=== PATIENT | female | born 1985 | race African-American/Black ===

== ENCOUNTER 2019-09-26 20:40 | Inpatient (IN) | payer OTHER ==
[2019-09-26 17:25] VITALS: BMI 19.5
--- NOTE | 2019-09-26 21:24 | HP ---
COWS - Scale Resting Pulse: 1= [place] 81-100 Sweatin=Flushed/Facial Moisture Restless Observation: 0= Sits Still Pupil Size: 0= Normal to Room Light Bone or Joint Aches: 4=Acute Joint/Muscle Pain Runny Nose/ Eye Tearin= Runny Nose/Eyes GI Upset > 30mins: 3= Vomiting/Diarrhea (vomiting x 2, diarrhea x 1) Tremor Observation: 2= Slight Tremor Visible Yawning Observation: 0= None Anxiety or Irritability: 2=Irritable/Anxious Goose Flesh Skin: 0=Smooth Skin COWS Score: 16 CIWA Score - Admission Criteria [facility]ASAS Guidelines: Admission for Medically Managed Detox: Requires at least one of the followin. CIWA greater than 12 2. Seizures within the past 24 hours 3. Delirium tremens within the past 24 hours 4. Hallucinations within the past 24 hours 5. Acute intervention needed for co occurring medical disorder 6. Acute intervention needed for co occurring psychiatric disorder 7. Severe withdrawal that cannot be handled at a lower level of care (continued vomiting, continued diarrhea, abnormal vital signs) requiring intravenous medication and/or fluids 8. Admission [facility] Chief Complaint: Heroin withdrawal symptoms Allergies/Adverse Reactions: Allergies Allergy/AdvReac Type Severity Reaction Status Date / Time No Known Allergies Allergy Verified 09/26/19 17:19 History of Present Illness: 34 years old female with 2 years of heroin dependence is seeking admission to detox. Patient reports that she has been in detox before at [facility] and reports insignificant period of sobriety. She has history of depression and anxiety. She denies suicide attempt and suicidal ideation at this time. This is her first admission to [facility]. Exam Limitations: No Limitations - Ebola screening Have you traveled outside of the country in the last 21 days: No Have you had contact with anyone from an Ebola affected area: No Do you have a fever: No - Review of Systems Constitutional: Chills, Malaise, Night Sweats EENT: reports: Sinus Pressure Respiratory: reports: No Symptoms reported Cardiac: reports: No Symptoms Reported GI: reports: Diarrhea, Nausea, Poor Appetite, Poor Fluid Intake, Vomiting : reports: No Symptoms Reported Musculoskeletal: reports: Joint Pain, Muscle Pain Integumentary: reports: Dryness, Flushing Neuro: reports: Tremors Endocrine: reports: No Symptoms Reported Hematology: reports: No Symptoms Reported Psychiatric: reports: Mood/Affect Appropiate, Orientated x3 Other Systems: Reviewed and Negative Patient History - Patient Medical History Hx Anemia: No Hx Asthma: No Hx Chronic Obstructive Pulmonary Disease (COPD): No Hx Cancer: No Hx Cardiac Disorders: No Hx Congestive Heart Failure: No Hx Hypertension: No Hx Hypercholesterolemia: No HX Cerebrovascular Accident: No Hx Seizures: No Hx Diabetes: No Hx Gastrointestinal Disorders: No Hx Liver Disease: No Hx Genitourinary Disorders: No Hx Sexually Transmitted Disorders: No Hx Renal Disease (ESRD): No Hx Thyroid Disease: No Hx Human Immunodeficiency Virus (HIV): No (Negative 2018) Hx Hepatitis C: No Hx Depression: Yes Hx Suicide Attempt: No (Denies suicidal ideation at this time) Hx Bipolar Disorder: Yes Hx Schizophrenia: No Other Medical History: Anxiety - Patient Surgical History Past Surgical History: Yes Hx Orthopedic Surgery: Yes (Ankle surgery 2015) - PPD History Previous Implant?: Yes - Reproductive History Patient is a Female of Child Bearing Age (11 -55 yrs old): Yes Patient : No - Smoking Cessation Smoking history: Current every day smoker Have you smoked in the past 12 months: Yes Hx Chewing Tobacco Use: No Initiated information on smoking cessation: Yes 'Breaking Loose' booklet given: 09/26/19 - Substance & Tx. History Substance Use Type: Cocaine, Heroin, Opiates Hx Substance Use Treatment: Yes (KATHLEEN lewis) - Substances abused Heroin Substance route: Inhalation Frequency: Daily Amount used: 20 BAGS Age of first use: 32 Date of last use: 09/26/19 Crack Substance route: Smoking Frequency: Daily Amount used: $100 Age of first use: 33 Date of last use: 09/26/19 Non-Rx Methadone Substance route: Oral Frequency: Daily Amount used: 30 MG Age of first use: 34 Date of last use: 09/06/19 Admission Physical Exam BHS - Vital Signs Vital Signs: Vital Signs - 24 hr 09/26/19 09/26/19 09/26/19 17:18 20:50 21:02 Temperature 97.1 F L 98.0 F 98.0 F Pulse Rate 99 H 99 H 99 H Respiratory 18 18 18 Rate Blood Pressure 145/82 145/82 145/82 - Physical General Appearance: Yes: Within Normal Limits, Tremorous, Irritable, Sweating, Anxious HEENTM: Yes: Within Normal Limits Respiratory: Yes: Lungs Clear, Normal Breath Sounds, No Respiratory Distress Neck: Yes: Supple Breast: Yes: Breast Exam Deferred Cardiology: Yes: Within Normal Limits Abdominal: Yes: Normal Bowel Sounds, Soft Genitourinary: Yes: Within Normal Limits Back: Yes: Normal Inspection Musculoskeletal: Yes: Within Normal Limits Extremities: Yes: Within Normal Limits Neurological: Yes: Within Normal Limits Integumentary: Yes: Warm Lymphatic: Yes: Within Normal Limits - Diagnostic (1) Opioid dependence with withdrawal Current Visit: Yes Status: Acute (2) Depression Current Visit: Yes Status: Acute Cleared for Admission [facility] - Detox or Rehab [facility] Level of Care: Medically Managed Detox Regimen/Protocol: Methadone Claeared for Rehab Admission: No Breathalyzer - Breathalyzer Breathalyzer: 0 Urine Drug Screen - Test Device Lot number: [id number] Expiration date: 05/16/21 - Control Is test valid?: Yes - Results Drug screen NEGATIVE: No Urine drug screen results: ELLIE-Cocaine, FEN-Fentanyl, MOP-Opiates, MTD-Methadone Inpatient Rehab Admission - Rehab Decision to Admit Inpatient rehab admission?: No
[2019-09-26] MEDS ORDERED: ACETAMINOPHEN 325 MG TABLET (FP) PO PRN ×2 (21:32)
[2019-09-26] MEDS ORDERED: MAGNESIUM CITRATE 300 ML BOTTLE PO PRN (21:32)
[2019-09-26] MEDS ORDERED: BISMUTH SUBSALICYLATE 524 MG/30 ML UD PO PRN (21:32)
[2019-09-26] MEDS ORDERED: cloNIDine HCL 0.1 MG TABLET PO PRN (21:32)
[2019-09-26] MEDS ORDERED: MAGNESIUM HYDROX 2400MG/30ML ORAL SUSPENSION 30 ML CUP PO PRN (21:32)
[2019-09-26] MEDS ORDERED: MELATONIN 5 MG TABLETS PO PRN (21:32)
[2019-09-26] MEDS ORDERED: MENTHOL/PHENOL 1 EACH UD MM PRN (21:32)
[2019-09-26] MEDS ORDERED: METHADONE HCL 10 MG TABLET (FOR DETOX USE ONLY) PO ONE (21:32)
[2019-09-26] MEDS ORDERED: IBUPROFEN 400 MG TABLET (FP) PO PRN (21:32)
[2019-09-26] MEDS ORDERED: METHOCARBAMOL 500 MG TABLET PO PRN (21:32)
[2019-09-26] MEDS ORDERED: NICOTINE POLACRILEX 2 MG GUM BUC PRN (21:32)
[2019-09-26] MEDS ORDERED: MAG HYDROX/AL HYDROX/SIMETH 30 ML UNIT-DOSE CUP PO PRN (21:32)
[2019-09-26] MEDS: THIAMINE HCL 100 MG TABLET (FP) PO SCH (23:40)
[2019-09-27] MEDS ORDERED: METHADONE (DETOX) 20 MG, METHADONE (DETOX) 5 MG PO ONE (10:00)
[2019-09-27 10:02] LABS: HEMATOCRIT 30.8 % (32.4-45.2); HEMOGLOBIN 9.8 GM/dL (10.7-15.3); MCH 25.2 pg (25.7-33.7); MCHC 31.7 g/dl (32.0-36.0); MEAN CELL VOLUME 79.6 fl (80-96); MEAN PLT VOLUME 8.4 fl (7.5-11.1); PLATELET COUNT 221 K/MM3 (134-434); RBC 3.87 M/mm3 (3.60-5.2); RDW 15.6 % (11.6-15.6); WHITE BLOOD COUNT 7.7 K/mm3 (4.0-10.0)
[2019-09-27] MEDS ORDERED: METHADONE HCL 5 MG TABLET (FOR DETOX USE ONLY) ONE (10:08)
[2019-09-27] MEDS ORDERED: METHADONE HCL 10 MG TABLET (FOR DETOX USE ONLY) ONE (10:09)
[2019-09-27 10:16] LABS: ALBUMIN 2.8 g/dl (3.4-5.0); BILIRUBIN,TOTAL 0.4 mg/dL (0.2-1); BLOOD UREA NITROGEN 15.3 mg/dL (7-18); CALCIUM 7.7 mg/dL (8.5-10.1); CREATININE 0.7 mg/dL (0.55-1.3); TOT PROT 5.7 g/dl (6.4-8.2)
[2019-09-27] MEDS: NICOTINE 21 MG/24 HOURS TOPICAL PATCH TD SCH (10:17)
[2019-09-27] MEDS: PRENATAL VITAMINS W/ FOLIC ACID TABLET (FP) PO SCH (10:17)
--- NOTE | 2019-09-27 10:58 | PN ---
BHS COWS - Scale Resting Pulse: 0= RI 80 or Below Sweatin= Chills/Flushing Restless Observation: 1= Difficult to Sit Still Pupil Size: 0= Normal to Room Light Bone or Joint Aches: 2= Severe Diffuse Aches Runny Nose/ Eye Tearin= Runny Nose/Eyes GI Upset > 30mins: 0= None Tremor Observation of Outstretched Hands: 2= Slight Tremor Visible Yawning Observation: 2= >3x During Session Anxiety or Irritability: 2=Irritable/Anxious Goose Flesh Skin: 0=Smooth Skin COWS Score: 12 BHS Progress Note (SOAP) Subjective: body aches sweats shakes interrupted sleep agitation Objective: 09/27/19 11:00 Vital Signs Temperature 97.9 F 09/27/19 09:46 Pulse Rate 72 09/27/19 09:46 Respiratory Rate 16 09/27/19 09:46 Blood Pressure 91/60 09/27/19 09:46 O2 Sat by Pulse Oximetry (%) Laboratory Tests 09/27/19 09/27/19 08:00 08:00 WBC 7.7 RBC 3.87 Hgb 9.8 L Hct 30.8 L MCV 79.6 L MCH 25.2 L MCHC 31.7 L RDW 15.6 Plt Count 221 MPV 8.4 Sodium 140 Potassium 4.0 Chloride 108 H Carbon Dioxide 28 Anion Gap 3 L BUN 15.3 Creatinine 0.7 Est GFR (CKD-EPI)AfAm 132.87 Est GFR (CKD-EPI)NonAf 114.64 Random Glucose 84 Calcium 7.7 L Total Bilirubin 0.4 AST 10 L ALT 13 Alkaline Phosphatase 57 Total Protein 5.7 L Albumin 2.8 L labs noted low H:H noted; iron supplement ordered will repeat labs aaox3 lying in bed no acute distress Assessment: 09/27/19 11:01 withdrawals Plan: continue detox increase fluids iron supplement repeat labs
--- NOTE | 2019-09-27 13:54 | CONSULT ---
[facility] Psychiatric Consult - Data Date of interview: 09/27/19 Admission source: [facility] Identifying data: [employer] Linguist approached patient for psychiatric consultation. Patient stated, " Not today. I don't feel well. Maybe another day." Psychiatric consultation refused.
--- NOTE | 2019-09-27 14:46 | EKG ---
Test Reason : Blood Pressure : / mmHG Vent. Rate : 080 BPM Atrial Rate : 080 BPM P-R Int : 144 ms QRS Dur : 080 ms QT Int : 400 ms P-R-T Axes : 035 060 057 degrees QTc Int : 461 ms NORMAL SINUS RHYTHM NORMAL ECG NO PREVIOUS ECGS AVAILABLE Confirmed by ERICK ROSE, LAURENCE ([id number]) on 09/27/2019 2:45:49 PM Referred By: Emmanuel Schumacher Confirmed By:LAURENCE SUAREZ MD
[2019-09-27] MEDS: FERROUS SO4 325 MG TABLET (FP) PO SCH ×2 (14:55→17:48)
[2019-09-27] MEDS: THIAMINE HCL 100 MG TABLET (FP) PO SCH (22:26)
[2019-09-28] MEDS: FERROUS SO4 325 MG TABLET (FP) PO SCH ×3 (07:03→16:44)
[2019-09-28] MEDS ORDERED: METHADONE HCL 10 MG TABLET (FOR DETOX USE ONLY) PO ONE (10:00)
[2019-09-28] MEDS: PRENATAL VITAMINS W/ FOLIC ACID TABLET (FP) PO SCH (10:16)
[2019-09-28] MEDS: NICOTINE 21 MG/24 HOURS TOPICAL PATCH TD SCH (10:17)
[2019-09-28 12:35] LABS: BASO % 0.3 % (0-2.0); EOS % 4.3 % (0-4.5); HEMATOCRIT 33.5 % (32.4-45.2); HEMOGLOBIN 10.3 GM/dL (10.7-15.3); LYMPH % 34.3 % (8-40); MCH 24.5 pg (25.7-33.7); MCHC 30.6 g/dl (32.0-36.0); NEUT % 55.1 % (42.8-82.8); PLATELET COUNT 222 K/MM3 (134-434); RBC 4.19 M/mm3 (3.60-5.2); RDW 15.9 % (11.6-15.6); WHITE BLOOD COUNT 7.4 K/mm3 (4.0-10.0)
--- NOTE | 2019-09-28 13:35 | PN ---
BHS COWS - Scale Resting Pulse: 1= SC 81-100 Sweatin= Chills/Flushing Restless Observation: 1= Difficult to Sit Still Pupil Size: 0= Normal to Room Light Bone or Joint Aches: 2= Severe Diffuse Aches Runny Nose/ Eye Tearin= Nasal Congestion GI Upset > 30mins: 0= None Tremor Observation of Outstretched Hands: 1= Tremor [place], Not Seen Yawning Observation: 1= 1-2x During Session Anxiety or Irritability: 2=Irritable/Anxious Goose Flesh Skin: 0=Smooth Skin COWS Score: 10 BHS Progress Note (SOAP) Subjective: shakes sweats restless body aches interrupted sleep anxiety Objective: 09/28/19 13:34 Vital Signs Temperature 97.7 F 09/28/19 13:14 Pulse Rate 87 09/28/19 13:14 Respiratory Rate 18 09/28/19 13:14 Blood Pressure 111/58 L 09/28/19 13:14 O2 Sat by Pulse Oximetry (%) Laboratory Tests 09/27/19 09/27/19 09/27/19 08:00 08:00 08:00 WBC 7.7 RBC 3.87 Hgb 9.8 L Hct 30.8 L MCV 79.6 L MCH 25.2 L MCHC 31.7 L RDW 15.6 Plt Count 221 MPV 8.4 Absolute Neuts (auto) Neutrophils % Lymphocytes % Monocytes % Eosinophils % Basophils % Nucleated RBC % Sodium 140 Potassium 4.0 Chloride 108 H Carbon Dioxide 28 Anion Gap 3 L BUN 15.3 Creatinine 0.7 Est GFR (CKD-EPI)AfAm 132.87 Est GFR (CKD-EPI)NonAf 114.64 Random Glucose 84 Calcium 7.7 L Total Bilirubin 0.4 AST 10 L ALT 13 Alkaline Phosphatase 57 Total Protein 5.7 L Albumin 2.8 L RPR Titer Nonreactive 09/28/19 08:58 WBC 7.4 RBC 4.19 Hgb 10.3 L Hct 33.5 MCV 80.0 MCH 24.5 L MCHC 30.6 L RDW 15.9 H Plt Count 222 MPV 9.0 Absolute Neuts (auto) 4.1 Neutrophils % 55.1 Lymphocytes % 34.3 Monocytes % 6.0 Eosinophils % 4.3 Basophils % 0.3 Nucleated RBC % 0 Sodium Potassium Chloride Carbon Dioxide Anion Gap BUN Creatinine Est GFR (CKD-EPI)AfAm Est GFR (CKD-EPI)NonAf Random Glucose Calcium Total Bilirubin AST ALT Alkaline Phosphatase Total Protein Albumin RPR Titer labs noted aaox3 ambulating no acute distress Assessment: 09/28/19 13:35 withdrawals Plan: continue detox increase fluids valium 10mg prn x 2 days
[2019-09-28] MEDS: diazePAM 5 MG TABLET PO PRN (16:44)
[2019-09-28] MEDS: THIAMINE HCL 100 MG TABLET (FP) PO SCH (22:29)
[2019-09-29] MEDS: diazePAM 5 MG TABLET PO PRN ×4 (05:45→22:45)
[2019-09-29] MEDS: FERROUS SO4 325 MG TABLET (FP) PO SCH ×3 (08:28→17:09)
[2019-09-29] MEDS ORDERED: METHADONE HCL 5 MG TABLET (FOR DETOX USE ONLY) ONE (09:11)
[2019-09-29] MEDS ORDERED: METHADONE HCL 10 MG TABLET (FOR DETOX USE ONLY) ONE (09:12)
[2019-09-29] MEDS ORDERED: METHADONE (DETOX) 10 MG, METHADONE (DETOX) 5 MG PO ONE (10:00)
[2019-09-29] MEDS: NICOTINE 21 MG/24 HOURS TOPICAL PATCH TD SCH (10:25)
[2019-09-29] MEDS: PRENATAL VITAMINS W/ FOLIC ACID TABLET (FP) PO SCH (10:25)
[2019-09-29] MEDS ORDERED: hydrOXYzine PAMOATE 25 MG CAPSULE (FP) PO PRN (10:38)
[2019-09-29] MEDS ORDERED: cloNIDine HCL 0.1 MG TABLET PO PRN (10:38)
--- NOTE | 2019-09-29 10:38 | PN ---
BHS COWS - Scale Resting Pulse: 1= [place] 81-100 Sweatin= Chills/Flushing Restless Observation: 1= Difficult to Sit Still Pupil Size: 0= Normal to Room Light Bone or Joint Aches: 1= Mild Discomfort Runny Nose/ Eye Tearin= Nasal Congestion GI Upset > 30mins: 1= Stomach Cramp Tremor Observation of Outstretched Hands: 1= Tremor [place], Not Seen Yawning Observation: 1= 1-2x During Session Anxiety or Irritability: 1=Feels Anxious/Irritable Goose Flesh Skin: 0=Smooth Skin COWS Score: 9 BHS Progress Note (SOAP) Subjective: Pt states she is feeling that she is having an allergic reaction to ketchup that she had at breakfast, no rash noted, no shortness of breath, no tongue swelling O: Vital Signs - 24 hr 09/28/19 09/28/19 09/28/19 10:35 13:14 17:03 Temperature 98.1 F 97.7 F 97.7 F Pulse Rate 82 87 74 Respiratory 16 18 18 Rate Blood Pressure 109/58 L 111/58 L 125/57 L 09/28/19 09/29/19 09/29/19 22:00 00:30 03:30 Temperature 97.7 F Pulse Rate 78 Respiratory 17 16 16 Rate Blood Pressure 96/62 09/29/19 09/29/19 06:00 09:44 Temperature 97.5 F L 96.6 F L Pulse Rate 69 89 Respiratory 16 18 Rate Blood Pressure 106/55 L 138/93 Laboratory Tests 09/27/19 09/27/19 09/27/19 08:00 08:00 08:00 WBC 7.7 RBC 3.87 Hgb 9.8 L Hct 30.8 L MCV 79.6 L MCH 25.2 L MCHC 31.7 L RDW 15.6 Plt Count 221 MPV 8.4 Absolute Neuts (auto) Neutrophils % Lymphocytes % Monocytes % Eosinophils % Basophils % Nucleated RBC % Sodium 140 Potassium 4.0 Chloride 108 H Carbon Dioxide 28 Anion Gap 3 L BUN 15.3 Creatinine 0.7 Est GFR (CKD-EPI)AfAm 132.87 Est GFR (CKD-EPI)NonAf 114.64 Random Glucose 84 Calcium 7.7 L Total Bilirubin 0.4 AST 10 L ALT 13 Alkaline Phosphatase 57 Total Protein 5.7 L Albumin 2.8 L RPR Titer Nonreactive 09/28/19 08:58 WBC 7.4 RBC 4.19 Hgb 10.3 L Hct 33.5 MCV 80.0 MCH 24.5 L MCHC 30.6 L RDW 15.9 H Plt Count 222 MPV 9.0 Absolute Neuts (auto) 4.1 Neutrophils % 55.1 Lymphocytes % 34.3 Monocytes % 6.0 Eosinophils % 4.3 Basophils % 0.3 Nucleated RBC % 0 Sodium Potassium Chloride Carbon Dioxide Anion Gap BUN Creatinine Est GFR (CKD-EPI)AfAm Est GFR (CKD-EPI)NonAf Random Glucose Calcium Total Bilirubin AST ALT Alkaline Phosphatase Total Protein Albumin RPR Titer a/p: OUD- methadone detox- pt will d/w counselor re methadone MAT allergy to tomato- put as allergy, Benadryl 50mg stat given, monitor, at the present time with no objective sx of allergic reaction
[2019-09-29] MEDS ORDERED: diphenhydrAMINE HCL 25 MG CAPSULE (FP) PO ONE (11:00)
--- NOTE | 2019-09-29 20:25 | PN ---
S Progress Note Note: C/o sore (L) upper lip - states occurred after eating tomato sauce and insists it's an allergic reaction. States sore itches. Received oral benadryl earlier but states it did not help. Assess: (L) upper lip w/ pale, blister-like lesion. No swelling of lips. No difficulty swallowing. Denies hx Herpes. Vital Signs 09/29/19 09/29/19 14:31 17:50 Temperature 97.5 F L 97.9 F Pulse Rate 92 H 96 H Respiratory 18 18 Rate Blood Pressure 107/64 107/62 Plan: Valtrex 1 gm PO Once Benadryl cream to lip BID, prn.
[2019-09-29] MEDS ORDERED: valACYclovir HCL 500 MG TABLET (FP) PO ONE (20:26)
[2019-09-29] MEDS: THIAMINE HCL 100 MG TABLET (FP) PO SCH (22:42)
[2019-09-30] MEDS: diazePAM 5 MG TABLET PO PRN (06:50)
[2019-09-30] MEDS: FERROUS SO4 325 MG TABLET (FP) PO SCH ×3 (07:39→21:42)
[2019-09-30] MEDS ORDERED: METHADONE HCL 10 MG TABLET (FOR DETOX USE ONLY) PO ONE (10:00)
[2019-09-30] MEDS: NICOTINE 21 MG/24 HOURS TOPICAL PATCH TD SCH (10:24)
[2019-09-30] MEDS: PRENATAL VITAMINS W/ FOLIC ACID TABLET (FP) PO SCH (10:24)
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
[2019-09-30] MEDS: THIAMINE HCL 100 MG TABLET (FP) PO SCH (21:42)
[2019-09-30] MEDS ORDERED: CALCIUM CARBONATE 650 MG TABLET PO SCH (22:00)
[2019-09-30] MEDS ORDERED: SUVOREXANT 10 MG TABLET PO PRN (22:00)
[2019-10-01] MEDS ORDERED: METHADONE HCL 5 MG TABLET (FOR DETOX USE ONLY) PO ONE (06:00)
[2019-10-01 06:37] VITALS: BP 135/54; PULSE 86; TEMP 97.7
[2019-10-01] MEDS: FERROUS SO4 325 MG TABLET (FP) PO SCH (07:10)
--- NOTE | 2019-10-01 10:32 | DS ---
[facility] Detox Discharge Summary Admission Date: 09/26/19 Discharge Date: 10/01/19 - History Present History: Opioid Dependence - Physical Exam Results Vital Signs: Vital Signs Temperature 97.7 F 10/01/19 06:00 Pulse Rate 86 10/01/19 06:00 Respiratory Rate 16 10/01/19 06:00 Blood Pressure 135/54 L 10/01/19 06:00 O2 Sat by Pulse Oximetry (%) Pertinent Admission Physical Exam Findings: Vital Signs Temperature 97.7 F 10/01/19 06:00 Pulse Rate 86 10/01/19 06:00 Respiratory Rate 16 10/01/19 06:00 Blood Pressure 135/54 L 10/01/19 06:00 O2 Sat by Pulse Oximetry (%) Laboratory Tests 09/27/19 09/27/19 09/27/19 08:00 08:00 08:00 WBC 7.7 RBC 3.87 Hgb 9.8 L Hct 30.8 L MCV 79.6 L MCH 25.2 L MCHC 31.7 L RDW 15.6 Plt Count 221 MPV 8.4 Absolute Neuts (auto) Neutrophils % Lymphocytes % Monocytes % Eosinophils % Basophils % Nucleated RBC % Sodium 140 Potassium 4.0 Chloride 108 H Carbon Dioxide 28 Anion Gap 3 L BUN 15.3 Creatinine 0.7 Est GFR (CKD-EPI)AfAm 132.87 Est GFR (CKD-EPI)NonAf 114.64 Random Glucose 84 Calcium 7.7 L Total Bilirubin 0.4 AST 10 L ALT 13 Alkaline Phosphatase 57 Total Protein 5.7 L Albumin 2.8 L RPR Titer Nonreactive 09/28/19 08:58 WBC 7.4 RBC 4.19 Hgb 10.3 L Hct 33.5 MCV 80.0 MCH 24.5 L MCHC 30.6 L RDW 15.9 H Plt Count 222 MPV 9.0 Absolute Neuts (auto) 4.1 Neutrophils % 55.1 Lymphocytes % 34.3 Monocytes % 6.0 Eosinophils % 4.3 Basophils % 0.3 Nucleated RBC % 0 Sodium Potassium Chloride Carbon Dioxide Anion Gap BUN Creatinine Est GFR (CKD-EPI)AfAm Est GFR (CKD-EPI)NonAf Random Glucose Calcium Total Bilirubin AST ALT Alkaline Phosphatase Total Protein Albumin RPR Titer aaox3 ambulating no acute distress - Treatment Hospital Course: Detox Protocol Followed, Detoxed Safely, Responded well, Discharged Condition Good, Rehab Referral Accepted Patient has Accepted a Rehab Referral to: pt declined rehab - Medication Discharge Medications: Ambulatory Orders NK [No Known Home Medication] 09/26/19 - Diagnosis (1) Depression Current Visit: Yes Status: Chronic (2) Opioid dependence with withdrawal Current Visit: Yes Status: Chronic (3) Substance-induced sleep disorder Current Visit: Yes Status: Acute (4) Mood disorder Current Visit: No Status: Chronic (5) PTSD (post-traumatic stress disorder) Current Visit: No Status: Chronic (6) Substance induced mood disorder Current Visit: No Status: Chronic - AMA Did Patient Leave Against Medical Advice: No
== END 2019-10-01 09:18 | disposition home or self-care (01) | DRG 773 ==
LOC: YASAS 20:40 → Y6N 22:33
PROVIDERS: ADMIT Allergy & Immunology; ATTEND Allergy & Immunology
PROC: HZ2ZZZZ Detoxification Services for Substance Abuse Treatment (ICD-10-PCS; principal; 2019-09-26)
DX: F11.23 Opioid dependence with withdrawal (principal); F17.210 Nicotine dependence, cigarettes, uncomplicated; F32.9 Major depressive disorder, single episode, unspecified; F19.24 Other psychoactive substance dependence with psychoactive substance-induced mood disorder; F19.282 Other psychoactive substance dependence with psychoactive substance-induced sleep disorder; F39 Unspecified mood [affective] disorder; F43.10 Post-traumatic stress disorder, unspecified; D64.9 Anemia, unspecified; E83.51 Hypocalcemia; K13.0 Diseases of lips; Z91.410 Personal history of adult physical and sexual abuse; T78.1XXA Other adverse food reactions, not elsewhere classified, initial encounter; X58.XXXA Exposure to other specified factors, initial encounter
CPT/HCPCS: 36415; 80053; 85025; 85027; 86593; 93005; 93010